=== PATIENT | male | born 1940 | race Caucasian/White ===

== ENCOUNTER 2018-01-31 15:21 | Inpatient (IN) | payer MEDICARE, OTHER ==
[~2018-01-31] VITALS: Ht 180.3 cm; Wt 121.2 kg
[2018-01-31] MEDS ORDERED: furosemide 40mg/4ml inj IV ONE (15:30)
[2018-01-31 15:54] LABS: BASOPHILS % (AUTO) 0.3 % (0-1); EOSINOPHILS # (AUTO) 0.3 X10'3 (0-0.9); EOSINOPHILS % (AUTO) 2.6 % (0-6); HEMATOCRIT 22.4 % (42.0-52.0); HEMOGLOBIN 7.4 g/dl (14.0-17.9); LYMPHOCYTES # (AUTO) 0.6 X10'3 (1.1-4.8); LYMPHOCYTES % (AUTO) 5.7 % (21-51); MEAN CORPUSCULAR HEMOGLOBIN 26.9 PG (27.0-31.0); MEAN CORPUSCULAR HGB CONC 33.1 % (33.0-36.5); MEAN CORPUSCULAR VOLUME 81.2 FL (78-98); MEAN PLATELET VOLUME 7.8 FL (7.4-10.4); MONOCYTES % (AUTO) 9.6 % (2-12); NEUTROPHILS # (AUTO) 8.5 X10'3 (1.8-7.7); NEUTROPHILS % (AUTO) 81.8 % (42-75); PLATELET COUNT 344 X10'3 (140-440); RED BLOOD COUNT 2.75 X10'6 (4.70-6.10); RED CELL DISTRIBUTION WIDTH 15.6 % (11.5-14.5); WHITE BLOOD COUNT 10.4 X10'3 (4.5-11.0)
[2018-01-31 16:14] LABS: ALANINE AMINOTRANSFERASE 26 U/L (12-78); ALBUMIN 2.2 G/DL (3.4-5.0); ALBUMIN/GLOBULIN RATIO 0.6 (1.1-1.5); ALKALINE PHOSPHATASE 85 IU/L (46-116); ANION GAP 8 (8-16); ASPARTATE AMINO TRANSFERASE 37 U/L (10-37); BILIRUBIN,TOTAL 0.9 MG/DL (0.1-1.0); BLOOD UREA NITROGEN 36 MG/DL (7-18); BUN/CREATININE RATIO 18.6 (5.4-32.0); CALCIUM 8.4 MG/DL (8.5-10.1); CHLORIDE 97 MMOL/L (99-107); CREATININE 1.94 MG/DL (0.60-1.10); GLUCOSE 125 MG/DL (70-104); SODIUM 137 MMOL/L (135-145); TOTAL CARBON DIOXIDE 32.4 MMOL/L (24-32); TOTAL PROTEIN 5.9 G/DL (6.4-8.2); eGFR 34 ML/MIN
[2018-01-31 16:49] LABS: TOTAL CELLS COUNTED 100
[2018-01-31 16:50] LABS: ANISOCYTOSIS 1+; PLATELET ESTIMATE NORMAL; POLYCHROMASIA 2+
[2018-01-31 16:52] LABS: HYPOCHROMASIA 1+
[2018-01-31] MEDS ORDERED: morphine 2 MG/ML inj. syringe IV ONE (20:45)
[2018-01-31] MEDS ORDERED: acetaminophen 325mg tablet PO PRN (20:50)
[2018-01-31] MEDS ORDERED: mag hydrox/Alum hydrox/simeth 30ml oral suspension PO PRN (20:50)
[2018-01-31] MEDS ORDERED: morphine 2 MG/ML inj. syringe IV PRN (20:50)
[2018-01-31] MEDS ORDERED: acetaminophen 650mg rectal suppository RC PRN (20:50)
[2018-01-31] MEDS ORDERED: diphenhydrAMINE 50 mg/ml inj IV PRN (20:50)
[2018-01-31] MEDS ORDERED: metoclopramide 5 mg/ml inj IV PRN (20:50)
[2018-01-31] MEDS ORDERED: magnesium hydroxide 30ml (MOM) UD suspension PO PRN (20:50)
[2018-01-31] MEDS ORDERED: HYDROcodone/acetaminophen 10/325mg tab PO PRN (20:50)
[2018-01-31] MEDS ORDERED: bisacodyl 10mg suppository rectal RC PRN (20:50)
[2018-01-31] MEDS ORDERED: HYDROmorphone 1 mg/ml syringe IV PRN ×2 (20:50)
[2018-01-31] MEDS ORDERED: diphenhydrAMINE 25mg capsule PO PRN (20:50)
[2018-01-31] MEDS ORDERED: temazepam 15mg capsule PO PRN (21:00)
[2018-01-31 21:14] LABS: COLOR,URINE YELLOW (Yellow); GLUCOSE, URINE NEGATIVE (Neg); KETONES,URINE NEGATIVE (Neg); LEUKOCYTE ESTERASE ,URINE TRACE (Neg); NITRITES, URINE NEGATIVE (Neg); OCCULT BLOOD,URINE LARGE (Neg); PROTEIN,URINE TRACE mg/dl (Neg); UROBILINOGEN,URINE 0.2 E.U/dL (0.2-1.0)
[2018-01-31 21:23] LABS: CLARITY,URINE SLIGHTLY CLOUDY (Clear); UA COLLECTION TYPE CLN CATCH MIDSTREAM
[2018-01-31 21:24] LABS: BACTERIA,URINE FEW /HPF (Neg); RBC,URINE 20-50 /HPF (0-2); SQUAMOUS EPITHELIAL CELL,UR FEW /LPF (FEW)
[2018-01-31 21:38] LABS: PHOSPHORUS 4.9 MG/DL (2.3-4.5)
[2018-01-31 21:41] LABS: HEMOGLOBIN A1C 5.5 % (4.5-6.2)
[2018-01-31 21:45] VITALS: BP 147/63
[2018-02-01 03:00] VITALS: BP 136/69
[2018-02-01 05:05] LABS: BASOPHILS % (AUTO) 0.3 % (0-1); EOSINOPHILS # (AUTO) 0.2 X10'3 (0-0.9); EOSINOPHILS % (AUTO) 2.5 % (0-6); HEMOGLOBIN 7.2 g/dl (14.0-17.9); LYMPHOCYTES # (AUTO) 0.6 X10'3 (1.1-4.8); LYMPHOCYTES % (AUTO) 6.6 % (21-51); MEAN CORPUSCULAR HGB CONC 32.9 % (33.0-36.5); MEAN CORPUSCULAR VOLUME 82.1 FL (78-98); MEAN PLATELET VOLUME 8.3 FL (7.4-10.4); MONOCYTES # (AUTO) 0.9 X10'3 (0-0.9); MONOCYTES % (AUTO) 9.4 % (2-12); NEUTROPHILS # (AUTO) 7.8 X10'3 (1.8-7.7); NEUTROPHILS % (AUTO) 81.2 % (42-75); PLATELET COUNT 361 X10'3 (140-440); RED BLOOD COUNT 2.66 X10'6 (4.70-6.10); RED CELL DISTRIBUTION WIDTH 15.8 % (11.5-14.5); WHITE BLOOD COUNT 9.6 X10'3 (4.5-11.0)
[2018-02-01 05:16] LABS: HEMATOCRIT 21.8 % (42.0-52.0)
[2018-02-01 05:38] LABS: ALANINE AMINOTRANSFERASE 23 U/L (12-78); ALBUMIN 2.1 G/DL (3.4-5.0); ALBUMIN/GLOBULIN RATIO 0.6 (1.1-1.5); ALKALINE PHOSPHATASE 80 IU/L (46-116); ANION GAP 6 (8-16); ASPARTATE AMINO TRANSFERASE 39 U/L (10-37); BILIRUBIN,TOTAL 0.9 MG/DL (0.1-1.0); BLOOD UREA NITROGEN 37 MG/DL (7-18); BUN/CREATININE RATIO 18.9 (5.4-32.0); CALCIUM 8.7 MG/DL (8.5-10.1); CHLORIDE 97 MMOL/L (99-107); CREATININE 1.96 MG/DL (0.60-1.10); GLUCOSE 102 MG/DL (70-104); POTASSIUM 4.7 MMOL/L (3.5-5.1); SODIUM 136 MMOL/L (135-145); TOTAL CARBON DIOXIDE 32.9 MMOL/L (24-32); TOTAL PROTEIN 5.7 G/DL (6.4-8.2); eGFR 33 ML/MIN
[2018-02-01 06:00] VITALS: BP 148/69
[2018-02-01] MEDS: pantoprazole 40 MG vial IV SCH (08:00)
[2018-02-01] MEDS: CefTRIAXone/D5W-Rocephin 1gm 50 ML IV SCH (08:00)
[2018-02-01] MEDS: docusate sod 100mg capsule PO SCH ×2 (08:18→20:29)
[2018-02-01] MEDS: furosemide 10 MG/1 ML 10ml inj IV SCH ×2 (08:18→20:30)
[2018-02-01] MEDS: morphine 2 MG/ML inj. syringe IV PRN (08:19)
[2018-02-01 11:00] VITALS: BP 130/66
[2018-02-01] MEDS: lactulose 20gm/30ml cup PO SCH ×2 (13:48→20:00)
[2018-02-01 15:00] VITALS: BP 128/67
[2018-02-01] MEDS ORDERED: BRIM5DRO EACHEYE (16:35)
[2018-02-01] MEDS ORDERED: TIMO5DRO32 EACHEYE (16:35)
[2018-02-01] MEDS: bisacodyl 10mg suppository rectal RC PRN (17:40)
[2018-02-01 19:00] VITALS: BP 138/60
[2018-02-01 23:00] VITALS: BP 149/63
[2018-02-02] VITALS (7 sets, daily range): BP systolic 121–154; BP diastolic 64–70
[2018-02-02] MEDS: lactulose 20gm/30ml cup PO SCH ×4 (02:00→20:44)
[2018-02-02 05:42] LABS: BASOPHILS % (AUTO) 0.3 % (0-1); EOSINOPHILS # (AUTO) 0.3 X10'3 (0-0.9); EOSINOPHILS % (AUTO) 2.7 % (0-6); LYMPHOCYTES # (AUTO) 0.6 X10'3 (1.1-4.8); LYMPHOCYTES % (AUTO) 6.6 % (21-51); MEAN CORPUSCULAR HGB CONC 33.1 % (33.0-36.5); MEAN CORPUSCULAR VOLUME 81.8 FL (78-98); MEAN PLATELET VOLUME 8.1 FL (7.4-10.4); MONOCYTES % (AUTO) 10.2 % (2-12); NEUTROPHILS # (AUTO) 7.7 X10'3 (1.8-7.7); NEUTROPHILS % (AUTO) 80.2 % (42-75); PLATELET COUNT 345 X10'3 (140-440); RED BLOOD COUNT 2.57 X10'6 (4.70-6.10); RED CELL DISTRIBUTION WIDTH 16.1 % (11.5-14.5); WHITE BLOOD COUNT 9.5 X10'3 (4.5-11.0)
[2018-02-02 05:50] LABS: HEMOGLOBIN 6.9 g/dl (14.0-17.9)
[2018-02-02 06:09] LABS: ALANINE AMINOTRANSFERASE 31 U/L (12-78); ALBUMIN/GLOBULIN RATIO 0.5 (1.1-1.5); ALKALINE PHOSPHATASE 81 IU/L (46-116); ANION GAP 4 (8-16); ASPARTATE AMINO TRANSFERASE 47 U/L (10-37); BILIRUBIN,TOTAL 0.7 MG/DL (0.1-1.0); BLOOD UREA NITROGEN 37 MG/DL (7-18); BUN/CREATININE RATIO 20.2 (5.4-32.0); CALCIUM 8.3 MG/DL (8.5-10.1); CHLORIDE 97 MMOL/L (99-107); CREATININE 1.83 MG/DL (0.60-1.10); GLUCOSE 127 MG/DL (70-104); POTASSIUM 4.3 MMOL/L (3.5-5.1); SODIUM 138 MMOL/L (135-145); TOTAL CARBON DIOXIDE 36.9 MMOL/L (24-32); TOTAL PROTEIN 5.7 G/DL (6.4-8.2); eGFR 36 ML/MIN
[2018-02-02] MEDS: HYDROcodone/acetaminophen 5mg/325mg tablet PO PRN (07:33)
[2018-02-02] MEDS: docusate sod 100mg capsule PO SCH ×2 (07:33→20:44)
[2018-02-02] MEDS: furosemide 10 MG/1 ML 10ml inj IV SCH ×2 (07:34→20:45)
[2018-02-02] MEDS: pantoprazole 40 MG vial IV SCH (08:00)
[2018-02-02] MEDS: CefTRIAXone/D5W-Rocephin 1gm 50 ML IV SCH (08:00)
[2018-02-02] MEDS ORDERED: LIDOcaine 0.5% (5mg/ml) 50ml vial ONE (14:36)
[2018-02-02] MEDS: morphine 2 MG/ML inj. syringe IV PRN (16:34)
[2018-02-02] MEDS: polyethylene glycol 3350 17gm powd pack PO SCH (20:44)
[2018-02-02] MEDS: lactobacillus rhamnosus 10,000 MMU CELLS/CAPSULE PO SCH (20:45)
[2018-02-02] MEDS: ondansetron/PF 4mg/2ml inj IV PRN (22:31)
[2018-02-03] MEDS: HYDROcodone/acetaminophen 5mg/325mg tablet PO PRN ×2 (00:01→13:32)
[2018-02-03] MEDS: lactulose 20gm/30ml cup PO SCH ×4 (01:14→19:57)
[2018-02-03 03:00] VITALS: BP 133/63
[2018-02-03 04:28] LABS: BASOPHILS % (AUTO) 0.5 % (0-1); EOSINOPHILS # (AUTO) 0.2 X10'3 (0-0.9); EOSINOPHILS % (AUTO) 2.2 % (0-6); LYMPHOCYTES # (AUTO) 0.7 X10'3 (1.1-4.8); LYMPHOCYTES % (AUTO) 8.1 % (21-51); MEAN CORPUSCULAR HEMOGLOBIN 27.1 PG (27.0-31.0); MEAN CORPUSCULAR HGB CONC 33.1 % (33.0-36.5); MEAN CORPUSCULAR VOLUME 81.8 FL (78-98); MEAN PLATELET VOLUME 8.2 FL (7.4-10.4); MONOCYTES # (AUTO) 0.9 X10'3 (0-0.9); MONOCYTES % (AUTO) 9.4 % (2-12); NEUTROPHILS # (AUTO) 7.4 X10'3 (1.8-7.7); NEUTROPHILS % (AUTO) 79.8 % (42-75); PLATELET COUNT 354 X10'3 (140-440); RED BLOOD COUNT 2.57 X10'6 (4.70-6.10); RED CELL DISTRIBUTION WIDTH 16.3 % (11.5-14.5); WHITE BLOOD COUNT 9.3 X10'3 (4.5-11.0)
[2018-02-03 04:32] LABS: HEMOGLOBIN 6.9 g/dl (14.0-17.9)
[2018-02-03 04:45] LABS: ALANINE AMINOTRANSFERASE 33 U/L (12-78); ALBUMIN/GLOBULIN RATIO 0.5 (1.1-1.5); ALKALINE PHOSPHATASE 75 IU/L (46-116); ANION GAP 5 (8-16); ASPARTATE AMINO TRANSFERASE 52 U/L (10-37); BILIRUBIN,TOTAL 0.6 MG/DL (0.1-1.0); BLOOD UREA NITROGEN 38 MG/DL (7-18); BUN/CREATININE RATIO 19.6 (5.4-32.0); CALCIUM 8.5 MG/DL (8.5-10.1); CHLORIDE 98 MMOL/L (99-107); CREATININE 1.94 MG/DL (0.60-1.10); GLUCOSE 118 MG/DL (70-104); POTASSIUM 4.2 MMOL/L (3.5-5.1); SODIUM 140 MMOL/L (135-145); TOTAL CARBON DIOXIDE 36.9 MMOL/L (24-32); TOTAL PROTEIN 5.7 G/DL (6.4-8.2); eGFR 34 ML/MIN
[2018-02-03 06:00] VITALS: BP 133/71
[2018-02-03] MEDS: pantoprazole 40mg Tablet.DR PO SCH (07:30)
[2018-02-03] MEDS: CefTRIAXone/D5W-Rocephin 1gm 50 ML IV SCH (08:00)
[2018-02-03] MEDS: docusate sod 100mg capsule PO SCH ×2 (08:00→19:57)
[2018-02-03] MEDS: furosemide 10 MG/1 ML 10ml inj IV SCH ×2 (09:07→19:56)
[2018-02-03] MEDS: lactobacillus rhamnosus 10,000 MMU CELLS/CAPSULE PO SCH ×2 (09:07→19:56)
[2018-02-03 11:00] VITALS: BP 129/61
[2018-02-03 17:05] VITALS: BP 113/63
[2018-02-03 19:00] VITALS: BP 104/55
[2018-02-03] MEDS: polyethylene glycol 3350 17gm powd pack PO SCH (19:56)
[2018-02-03] MEDS: timolol 0.5% ophthalmic solution 5ml bottle EACHEYE SCH (19:57)
[2018-02-03] MEDS: brimonidine 0.2% 5 ML ophthalmic drops EACHEYE SCH (20:17)
[2018-02-03 23:00] VITALS: BP 118/59
[2018-02-04] MEDS ORDERED: brimonidine 0.2% 5 ML ophthalmic drops EACHEYE SCH
[2018-02-04] MEDS: lactulose 20gm/30ml cup PO SCH ×4 (01:15→20:00)
[2018-02-04 03:00] VITALS: BP 138/69
[2018-02-04 06:00] VITALS: BP 130/66
[2018-02-04 06:13] LABS: BASOPHILS % (AUTO) 0.3 % (0-1); EOSINOPHILS # (AUTO) 0.4 X10'3 (0-0.9); EOSINOPHILS % (AUTO) 3.2 % (0-6); HEMOGLOBIN 7.1 g/dl (14.0-17.9); LYMPHOCYTES # (AUTO) 0.8 X10'3 (1.1-4.8); LYMPHOCYTES % (AUTO) 7.1 % (21-51); MEAN CORPUSCULAR HEMOGLOBIN 28.1 PG (27.0-31.0); MEAN CORPUSCULAR HGB CONC 34.7 % (33.0-36.5); MEAN PLATELET VOLUME 8.2 FL (7.4-10.4); MONOCYTES # (AUTO) 1.2 X10'3 (0-0.9); MONOCYTES % (AUTO) 11.1 % (2-12); NEUTROPHILS # (AUTO) 8.7 X10'3 (1.8-7.7); NEUTROPHILS % (AUTO) 78.3 % (42-75); PLATELET COUNT 341 X10'3 (140-440); RED BLOOD COUNT 2.53 X10'6 (4.70-6.10); WHITE BLOOD COUNT 11.1 X10'3 (4.5-11.0)
[2018-02-04 06:18] LABS: ALANINE AMINOTRANSFERASE 30 U/L (12-78); ALBUMIN/GLOBULIN RATIO 0.5 (1.1-1.5); ALKALINE PHOSPHATASE 86 IU/L (46-116); ANION GAP 5 (8-16); ASPARTATE AMINO TRANSFERASE 50 U/L (10-37); BILIRUBIN,TOTAL 0.8 MG/DL (0.1-1.0); BLOOD UREA NITROGEN 43 MG/DL (7-18); BUN/CREATININE RATIO 19.9 (5.4-32.0); CHLORIDE 96 MMOL/L (99-107); CREATININE 2.16 MG/DL (0.60-1.10); GLUCOSE 116 MG/DL (70-104); POTASSIUM 4.3 MMOL/L (3.5-5.1); SODIUM 136 MMOL/L (135-145); TOTAL CARBON DIOXIDE 35.4 MMOL/L (24-32); TOTAL PROTEIN 5.7 G/DL (6.4-8.2); eGFR 30 ML/MIN
[2018-02-04 06:43] LABS: HEMATOCRIT 20.5 % (42.0-52.0)
[2018-02-04] MEDS: pantoprazole 40mg Tablet.DR PO SCH (07:30)
[2018-02-04] MEDS: CefTRIAXone/D5W-Rocephin 1gm 50 ML IV SCH (08:00)
[2018-02-04] MEDS: brimonidine 0.2% 5 ML ophthalmic drops EACHEYE SCH ×3 (08:00→23:19)
[2018-02-04] MEDS: timolol 0.5% ophthalmic solution 5ml bottle EACHEYE SCH ×3 (08:00→20:48)
[2018-02-04] MEDS: furosemide 10 MG/1 ML 10ml inj IV SCH (08:57)
[2018-02-04] MEDS: docusate sod 100mg capsule PO SCH ×2 (09:15→20:00)
[2018-02-04] MEDS: lactobacillus rhamnosus 10,000 MMU CELLS/CAPSULE PO SCH ×2 (09:16→20:47)
[2018-02-04 11:00] VITALS: BP 106/65
[2018-02-04 15:00] VITALS: BP 133/64
[2018-02-04] MEDS: bisacodyl 10mg suppository rectal RC PRN (16:48)
[2018-02-04 19:00] VITALS: BP 127/57
[2018-02-04] MEDS: furosemide 40mg/4ml inj IV SCH (20:47)
[2018-02-04] MEDS: polyethylene glycol 3350 17gm powd pack PO SCH (20:47)
[2018-02-04 23:09] VITALS: BP 144/54
[2018-02-05] MEDS: lactulose 20gm/30ml cup PO SCH ×3 (01:54→14:00)
[2018-02-05] MEDS: morphine 2 MG/ML inj. syringe IV PRN (03:57)
[2018-02-05 05:04] LABS: BASOPHILS % (AUTO) 0.2 % (0-1); EOSINOPHILS # (AUTO) 0.3 X10'3 (0-0.9); EOSINOPHILS % (AUTO) 3.4 % (0-6); HEMATOCRIT 22.5 % (42.0-52.0); HEMOGLOBIN 7.3 g/dl (14.0-17.9); LYMPHOCYTES # (AUTO) 0.7 X10'3 (1.1-4.8); LYMPHOCYTES % (AUTO) 6.9 % (21-51); MEAN CORPUSCULAR HEMOGLOBIN 26.5 PG (27.0-31.0); MEAN CORPUSCULAR HGB CONC 32.3 % (33.0-36.5); MEAN CORPUSCULAR VOLUME 81.8 FL (78-98); MEAN PLATELET VOLUME 8.1 FL (7.4-10.4); MONOCYTES # (AUTO) 0.9 X10'3 (0-0.9); MONOCYTES % (AUTO) 9.1 % (2-12); NEUTROPHILS # (AUTO) 7.9 X10'3 (1.8-7.7); NEUTROPHILS % (AUTO) 80.4 % (42-75); PLATELET COUNT 385 X10'3 (140-440); RED BLOOD COUNT 2.75 X10'6 (4.70-6.10); RED CELL DISTRIBUTION WIDTH 15.8 % (11.5-14.5); WHITE BLOOD COUNT 9.9 X10'3 (4.5-11.0)
[2018-02-05 05:44] LABS: ALANINE AMINOTRANSFERASE 26 U/L (12-78); ALBUMIN 2.2 G/DL (3.4-5.0); ALBUMIN/GLOBULIN RATIO 0.6 (1.1-1.5); ALKALINE PHOSPHATASE 88 IU/L (46-116); ANION GAP 8 (8-16); ASPARTATE AMINO TRANSFERASE 50 U/L (10-37); BLOOD UREA NITROGEN 49 MG/DL (7-18); BUN/CREATININE RATIO 23.1 (5.4-32.0); CHLORIDE 94 MMOL/L (99-107); CREATININE 2.12 MG/DL (0.60-1.10); GLUCOSE 109 MG/DL (70-104); SODIUM 137 MMOL/L (135-145); TOTAL CARBON DIOXIDE 35.1 MMOL/L (24-32); TOTAL PROTEIN 6.2 G/DL (6.4-8.2); eGFR 30 ML/MIN
[2018-02-05] MEDS: ondansetron/PF 4mg/2ml inj IV PRN (06:44)
[2018-02-05 07:00] VITALS: BP 137/67
[2018-02-05] MEDS: pantoprazole 40mg Tablet.DR PO SCH (07:30)
[2018-02-05] MEDS: lactobacillus rhamnosus 10,000 MMU CELLS/CAPSULE PO SCH (08:00)
[2018-02-05] MEDS: CefTRIAXone/D5W-Rocephin 1gm 50 ML IV SCH (08:00)
[2018-02-05] MEDS: docusate sod 100mg capsule PO SCH ×2 (08:24→19:25)
[2018-02-05] MEDS: furosemide 40mg/4ml inj IV SCH (08:24)
[2018-02-05] MEDS: brimonidine 0.2% 5 ML ophthalmic drops EACHEYE SCH ×2 (08:26→16:16)
[2018-02-05] MEDS: timolol 0.5% ophthalmic solution 5ml bottle EACHEYE SCH ×3 (08:27→21:00)
[2018-02-05 15:21] VITALS: BP 140/70
[2018-02-05 19:00] VITALS: BP 137/70
[2018-02-05] MEDS: furosemide 10 MG/1 ML 10ml inj IV SCH (19:26)
[2018-02-06] MEDS: ondansetron/PF 4mg/2ml inj IV PRN (04:10)
[2018-02-06] MEDS: docusate sod 100mg capsule PO SCH (08:00)
[2018-02-06 08:49] VITALS: BP 131/52
[2018-02-06] MEDS: brimonidine 0.2% 5 ML ophthalmic drops EACHEYE SCH ×2 (08:55)
[2018-02-06] MEDS: furosemide 10 MG/1 ML 10ml inj IV SCH (08:55)
[2018-02-06] MEDS: timolol 0.5% ophthalmic solution 5ml bottle EACHEYE SCH ×2 (08:56→13:00)
[2018-02-06] MEDS ORDERED: DOCU-28 PO (11:59)
[2018-02-06] MEDS ORDERED: FURO-150 PO (11:59)
[2018-02-06] MEDS ORDERED: MAGN400O6 PO (11:59)
[2018-02-06] MEDS ORDERED: GLYC-10 RC (11:59)
== END 2018-02-06 15:12 | disposition hospice, home (50) | DRG 686 ==
LOC: ER 15:22 → ED HOLD 20:49 → PCU 3S 21:44 → SUR 3N 02-04 22:00
PROVIDERS: ADMIT Family Medicine; ATTEND Internal Medicine
PROC: 0W9B3ZZ Drainage of Left Pleural Cavity, Percutaneous Approach (ICD-10-PCS; principal; 2018-02-02)
DX: C64.1 Malignant neoplasm of right kidney, except renal pelvis (principal); N17.0 Acute kidney failure with tubular necrosis; C78.7 Secondary malignant neoplasm of liver and intrahepatic bile duct; C78.02 Secondary malignant neoplasm of left lung; C78.01 Secondary malignant neoplasm of right lung; E44.0 Moderate protein-calorie malnutrition; J91.0 Malignant pleural effusion; N39.0 Urinary tract infection, site not specified; R60.1 Generalized edema; N18.9 Chronic kidney disease, unspecified; I12.9 Hypertensive chronic kidney disease with stage 1 through stage 4 chronic kidney disease, or unspecified chronic kidney disease; R09.02 Hypoxemia; D63.8 Anemia in other chronic diseases classified elsewhere; K59.00 Constipation, unspecified; Z51.5 Encounter for palliative care; Z99.81 Dependence on supplemental oxygen; Z79.899 Other long term (current) drug therapy; Z68.37 Body mass index [BMI] 37.0-37.9, adult
CPT/HCPCS: 32555; 36415; 71045; 71250; 74176; 76705; 80053; 81001; 83036; 83735; 83880; 84100; 85025; 86885; 86900; 86901; 87070; 87088; 93005; 93306; 96374; 99285; A6213; C9113; J0696; J1940; J2001; J2270; J2405